=== PATIENT | female | born 2000 | race Caucasian/White ===

== ENCOUNTER 2023-02-17 12:43 | Emergency (ER) | payer OTHER ==
[~2023-02-17] VITALS: Ht 157.5 cm; Wt 81.6 kg
[2023-02-17 12:54] VITALS: BP 115/63
--- NOTE | 2023-02-17 13:39 | NUR ---
PRESENTS TO ED FOR MED CLEARANCE, PER PT SHE NEEDS A FORM THAT STATES SHE IS . NOTED GRAVID ABD, PER PT SHE IS APPROX 8 MONTHS , DENIES ANY ABD PAIN, VAGINAL BLEEDING OR OTHER COMPLAINTS, UNK LMP, PT STATES THAT SHE IS IRREGULAR AND DOES NOT KNOW WHEN SHE HAD HER LAST MENSTRUATION. G1 NKA PMH: DENIES
[2023-02-17] MEDS ORDERED: PNV1TABL5 PO (14:47)
[2023-02-17 14:56] LABS: BILIRUBIN,URINE NEGATIVE (NEGATIVE); BLOOD, URINE NEGATIVE (NEGATIVE); COLOR,URINE YELLOW (YELLOW); LEUKOCYTE ESTERASE ,URINE 2+ (NEGATIVE); NITRITE, URINE NEGATIVE (NEGATIVE); PH,URINE 6.5 (5.0-9.0); UGLUCOSE NEGATIVE (NEGATIVE)
[2023-02-17 14:59] LABS: APPEARANCE,URINE HAZY (CLEAR)
--- NOTE | 2023-02-17 14:59 | NUR ---
Patient discharged with v/s stable. Written and verbal after care instructions given and explained. Patient alert, oriented and verbalized understanding of instructions. Ambulatory with steady gait. All questions addressed prior to discharge. ID band removed. Patient advised to follow up with PMD. Rx of MULTI TABLET given. Patient educated on indication of medication including possible reaction and side effects. Opportunity to ask questions provided and answered.
[2023-02-17 15:27] LABS: RBC,URINE NONE SEEN /HPF (0-5)
[2023-02-17] MEDS ORDERED: CEPH-588 PO (16:41)
--- NOTE | 2023-02-20 10:50 | NUR ---
LATE ENTRY RECEIVED POSITIVE URINE CULTURE AND HOSIERY BAGGER, DR NELSON MADE AWARE, TREATMENT APPROPRIATE, NO FURTHER ORDERS
== END 2023-02-17 14:59 | disposition home or self-care (01) ==
LOC: MED 12:43
DX: O23.43 Unspecified infection of urinary tract in pregnancy, third trimester (principal); N39.0 Urinary tract infection, site not specified; Z3A.29 29 weeks gestation of pregnancy
CPT/HCPCS: 76805; 81001; 81025; 87086; 99284; Q0092